=== PATIENT | female | born 1985 | race Hispanic/Latino ===

== ENCOUNTER 2018-06-28 02:06 | Emergency (ER) | payer SELFPAY ==
[2018-06-28] MEDS ORDERED: TYLENOL PO ONE (03:24)
[2018-06-28 03:53] LABS: Basophils % (Auto) 0.4 % (0.0-1.8); Eosinophils # (Auto) 0.1 K/mm3 (0.0-0.4); Eosinophils % (Auto) 1.1 % (0.0-4.3); Hematocrit 40.1 % (30.3-42.9); Lymphocytes # (Auto) 1.8 K/mm3 (1.2-5.4); Lymphocytes % (Auto) 16.8 % (13.4-35.0); Mean Corpuscular HGB Conc 35 % (30-34); Mean Corpuscular Hemoglobin 32 pg (28-32); Mean Corpuscular Volume 91 fl (79-97); Monocytes # (Auto) 0.6 K/mm3 (0.0-0.8); Monocytes % (Auto) 5.4 % (0.0-7.3); Platelet Count 185 K/mm3 (140-440); Red Blood Count 4.41 M/mm3 (3.65-5.03); Red Cell Distribution Width 13.2 % (13.2-15.2)
[2018-06-28 04:11] LABS: Alanine Aminotransferase 13 units/L (7-56); Albumin 3.9 g/dL (3.9-5); BUN/Creatinine Ratio 13; Blood Urea Nitrogen 9 mg/dL (7-17); Calcium 8.7 mg/dL (8.4-10.2); Hemolysis Index 9
[2018-06-28 06:05] LABS: Bacteria,Urine 3+ /HPF (Negative); Bilirubin,Urine NEG (Negative); Blood,Urine LG (Negative); Color,Urine Yellow (Yellow); Urobilinogen,Urine < 2.0 mg/dL (<2.0)
[2018-06-28 06:06] LABS: Mucus,Urine 1+ /HPF; WBC,Urine > 182.0 /HPF (0.0-6.0)
[2018-06-28] MEDS ORDERED: MOTRIN PO ONE (10:02)
--- NOTE | 2018-06-28 11:23 | Emergency Department Report ---
ED Abdominal Pain HPI - General Chief Complaint: Abdominal Pain Stated Complaint: KIDNEY PAIN Time Seen by Provider: 06/28/18 11:20 Source: patient, family Mode of arrival: Ambulatory Limitations: No Limitations - History of Present Illness Initial Comments: This is 32-year-old female here with flank pain bilaterally worse than left. She is having nausea vomiting. Pain is 10 out of 10 to flank. Denies any fever or chills. She says she has a history of kidney stones and she does not have a urologist she just moved from [place]. She is also reporting urinary burning. Pain is sharp and cramping. Intermittent. No alleviating or exacerbating factors. MD Complaint: flank pain Onset/Timin -: days(s) Location: L flank, R flank Radiation: none Migration to: no migration Severity scale (0 -10): 10 Quality: cramping, aching, sharp Consistency: constant Improves With: nothing Worsens With: nothing Context: other (history of kidney stones) Associated Symptoms: nausea, vomiting, dysuria. denies: diarrhea, fever, chills , constipation, hematemesis, hematochezia, melena, hematuria, anorexia, syncope Treatments Prior to Arrival: other ([id number] pain medication) - Related Data LMP (females 10-50): unknown (on control) Previous Rx's Medication Instructions Recorded Last Taken Type Acetaminophen/Codeine [Tylenol 1 tab PO Q6H PRN #12 tab 06/28/18 Unknown Rx /Codeine # 3 tab] Ciprofloxacin HCl [Ciprofloxacin 500 mg PO Q12HR 10 Days #20 tab 06/28/18 Unknown Rx TAB] Naproxen 500 mg PO Q12H PRN #12 tablet 06/28/18 Unknown Rx Ondansetron [Zofran TAB] 4 mg PO Q8HR PRN #12 tablet 06/28/18 Unknown Rx Allergies Allergy/AdvReac Type Severity Reaction Status Date / Time ketorolac [From Toradol] Allergy Swelling Verified 06/28/18 03:16 Sulfa (Sulfonamide Allergy Hives Verified 06/28/18 03:16 Antibiotics) ED Review of Systems ROS: Stated complaint: KIDNEY PAIN Other details as noted in HPI Constitutional: denies: chills, fever Eyes: denies: eye pain, eye discharge ENT: denies: ear pain, throat pain, congestion Respiratory: denies: cough, shortness of breath, SOB with exertion, SOB at rest , stridor, wheezing Cardiovascular: denies: chest pain, palpitations, dyspnea on exertion, edema, syncope Gastrointestinal: abdominal pain, other (bilateral flank pain). denies: nausea , diarrhea, constipation, hematemesis, hematochezia Genitourinary: dysuria. denies: urgency, frequency, hematuria, discharge, dyspareunia Musculoskeletal: denies: back pain, joint swelling, arthralgia Skin: denies: rash, lesions Neurological: denies: headache, weakness ED Past Medical Hx - Past Medical History Previous Medical History?: Yes Additional medical history: blood clotting Disorder - Surgical History Past Surgical History?: Yes Additional Surgical History: IVC filter c sect, tonsilectomy - Family History Family history: hypertension - Social History Smoking Status: Current Every Day Smoker Substance Use Type: Marijuana - Medications Home Medications: Home Medications Medication Instructions Recorded Confirmed Last Taken Type Acetaminophen/Codeine [Tylenol 1 tab PO Q6H PRN #12 tab 06/28/18 Unknown Rx /Codeine # 3 tab] Ciprofloxacin HCl [Ciprofloxacin 500 mg PO Q12HR 10 Days #20 tab 06/28/18 Unknown Rx TAB] Naproxen 500 mg PO Q12H PRN #12 tablet 06/28/18 Unknown Rx Ondansetron [Zofran TAB] 4 mg PO Q8HR PRN #12 tablet 06/28/18 Unknown Rx ED Physical Exam - General Limitations: No Limitations General appearance: alert, in no apparent distress - Head Head exam: Present: atraumatic, normocephalic, normal inspection - Eye Eye exam: Present: normal appearance, PERRL, EOMI Pupils: Present: normal accommodation - ENT ENT exam: Present: normal exam, normal orophraynx, mucous membranes moist, TM's normal bilaterally, normal external ear exam - Neck Neck exam: Present: normal inspection, full ROM. Absent: tenderness, lymphadenopathy - Respiratory Respiratory exam: Present: normal lung sounds bilaterally. Absent: respiratory distress, chest wall tenderness, accessory muscle use - Cardiovascular Cardiovascular Exam: Present: regular rate, normal rhythm, normal heart sounds. Absent: systolic murmur, diastolic murmur - GI/Abdominal GI/Abdominal exam: Present: soft, normal bowel sounds. Absent: distended, tenderness, guarding, rebound, rigid, organomegaly, mass - Extremities Exam Extremities exam: Present: normal inspection, full ROM, normal capillary refill , other (No cce. + 2 pulses in all extremities, no neurovascular compromise). Absent: tenderness, pedal edema, joint swelling, calf tenderness - Back Exam Back exam: Present: normal inspection, full ROM, CVA tenderness (R), CVA tenderness (L) (pain is greater in the left), other (patient ablates about any difficulties). Absent: tenderness, muscle spasm, paraspinal tenderness, vertebral tenderness, rash noted - Neurological Exam Neurological exam: Present: alert, oriented X3, normal gait, reflexes normal. Absent: motor sensory deficit - Psychiatric Psychiatric exam: Present: normal affect, normal mood - Skin Skin exam: Present: warm, dry, intact, normal color. Absent: rash ED Course Vital Signs 06/28/18 06/28/18 06/28/18 03:17 08:45 11:58 Temperature 98.3 F 98.1 F Pulse Rate 74 63 Respiratory 20 18 18 Rate Blood Pressure 131/94 123/80 O2 Sat by Pulse 99 100 Oximetry ED Medical Decision Making - Lab Data Result diagrams: 06/28/18 03:30 06/28/18 03:30 3 mm right renal stone, nonobstructing. Mild prominence of the left renal pelvis. No obstructing lesion is identified. This could represent an extrarenal pelvis or possibly a stricture at the left UPJ. 2 cm left ovarian cyst. - EKG Data -: EKG Interpreted by Ms - Radiology Data Radiology results: report reviewed CT scan of the abdomen and pelvis without contrast dictated per radiologist and reviewed by myself. Please see report below Patient: PHILLIP BOJORQUEZ MR#: [id number] : 1985 Acct:[id number] Age/Sex: 32 / F ADM Date: 06/28/18 Loc: ED Attending Dr: Ordering Physician: LYNNETTE DURAN Date of Service: 06/28/18 Procedure(s): CT abdomen pelvis wo con Accession Number(s): [id number] cc: LYNNETTE DURAN CT ABDOMEN PELVIS WITHOUT CONTRAST: HISTORY: Abdominal pain, flank pain, blood in urine, nausea and vomiting. COMPARISON: none. TECHNIQUE: Helical CT in 1.25mm intervals without IV contrast. Sagittal and coronal reconstructions. FINDINGS: Lung bases: Normal. Liver: Normal. Biliary system: Normal. Pancreas: Normal. Spleen: Normal. Kidneys/ureters/bladder: A 3 mm calyceal stone is identified at the inferior pole of the right kidney. No left nephrolithiasis is identified. The left renal pelvis appears prominent with a transition point at the left ureteropelvic junction. This may represent mild narrowing at the left UPJ. The bladder is unremarkable. Adrenal glands: Normal. Aorta: Normal. Intestines: Within normal limits given no oral contrast was administered. Appendix: Normal. Pelvic viscera: A 2 cm left ovarian cyst is identified. The uterus and right ovary are unremarkable. Bilateral Essure devices are identified which appear in adequate position. Ascites: None. Adenopathy: None. Musculoskeletal: Normal. IMPRESSION: 3 mm right renal stone, nonobstructing. Mild prominence of the left renal pelvis. No obstructing lesion is identified. This could represent an extrarenal pelvis or possibly a stricture at the left UPJ. 2 cm left ovarian cyst. Transcribed By: TTR Dictated By: IFTIKHAR HENDERSON JR, MD Electronically Authenticated By: IFTIKHAR HENDERSON JR, MD Signed Date/Time: 06/28/18 125 DD/ 1251 TD/TT: 06/28/18 1254 Critical care attestation.: If time is entered above; I have spent that time in minutes in the direct care of this critically ill patient, excluding procedure time. ED Disposition Clinical Impression: Flank pain, acute, Acute cystitis with hematuria, Right kidney stone, Left ovarian cyst Abdominal pain Qualifiers: Abdominal location: generalized Qualified Code(s): R10.84 - Generalized abdominal pain Nausea and vomiting Qualifiers: Vomiting type: unspecified Vomiting Intractability: non-intractable Qualified Code(s): R11.2 - Nausea with vomiting, unspecified Disposition: TO HOME OR SELFCARE Is pt being admited?: No Does the pt Need Aspirin: No Condition: Good Instructions: Abdominal Pain (ED), Flank Pain (ED), Urinary Tract Infection in Women (ED), Acute Nausea and Vomiting (ED) Additional Instructions: Please follow up with a primary care physician or [facility] in 4 days or return to emergency room if your condition worsens Take medication as prescribed Take naproxen for mild to moderate pain Take Tylenol 3 for severe pain but appears to not drive or operate heavy machinery while taking this medication as causes drowsiness Take ciprofloxacin for urinary tract infection Follow-up with urology for right kidney stone Follow up with [facility]NER at [facility] for left ovarian cyst. Prescriptions: Acetaminophen/Codeine [Tylenol /Codeine # 3 tab] 1 tab PO Q6H PRN #12 tab PRN Reason: severe pain Ciprofloxacin HCl [Ciprofloxacin TAB] 500 mg PO Q12HR 10 Days #20 tab Naproxen 500 mg PO Q12H PRN #12 tablet PRN Reason: mild to moderate pain Ondansetron [Zofran TAB] 4 mg PO Q8HR PRN #12 tablet PRN Reason: Nausea And Vomiting Referrals: PRIMARY CAREMD [Primary Care Provider] - 07/02/18 [facility] [Outside] - 07/02/18 JAGDISH SWANN MD [Staff Physician] - 07/02/18 Forms: Work/School Release Form(ED)
[2018-06-28] MEDS ORDERED: NACL 0.9% 1000 ML 1,000 ML IV ONE (11:35)
[2018-06-28] MEDS ORDERED: MORPHINE IM ONE (11:35)
[2018-06-28] MEDS ORDERED: ROCEPHIN 250 MG in NACL 0.9% 50 ML IV ONE (11:35)
[2018-06-28] MEDS ORDERED: ZOFRAN IV ONE (11:35)
[2018-06-28] MEDS ORDERED: NORCO 5/325 PO ONE (12:42)
--- NOTE | 2018-06-28 13:00 | Cat Scan Report ---
CT ABDOMEN PELVIS WITHOUT CONTRAST: HISTORY: Abdominal pain, flank pain, blood in urine, nausea and vomiting. COMPARISON: none. TECHNIQUE: Helical CT in 1.25mm intervals without IV contrast. Sagittal and coronal reconstructions. FINDINGS: Lung bases: Normal. Liver: Normal. Biliary system: Normal. Pancreas: Normal. Spleen: Normal. Kidneys/ureters/bladder: A 3 mm calyceal stone is identified at the inferior pole of the right kidney. No left nephrolithiasis is identified. The left renal pelvis appears prominent with a transition point at the left ureteropelvic junction. This may represent mild narrowing at the left UPJ. The bladder is unremarkable. Adrenal glands: Normal. Aorta: Normal. Intestines: Within normal limits given no oral contrast was administered. Appendix: Normal. Pelvic viscera: A 2 cm left ovarian cyst is identified. The uterus and right ovary are unremarkable. Bilateral Essure devices are identified which appear in adequate position. Ascites: None. Adenopathy: None. Musculoskeletal: Normal. IMPRESSION: 3 mm right renal stone, nonobstructing. Mild prominence of the left renal pelvis. No obstructing lesion is identified. This could represent an extrarenal pelvis or possibly a stricture at the left UPJ. 2 cm left ovarian cyst.
[2018-06-28 16:35] VITALS: BP 128/87
== END 2018-06-28 16:34 | disposition home or self-care (01) ==
LOC: ED 02:06
DX: N30.01 Acute cystitis with hematuria (principal); N20.0 Calculus of kidney; N83.202 Unspecified ovarian cyst, left side; F17.200 Nicotine dependence, unspecified, uncomplicated; F12.10 Cannabis abuse, uncomplicated; Z90.89 Acquired absence of other organs; Z88.6 Allergy status to analgesic agent; Z88.2 Allergy status to sulfonamides
CPT/HCPCS: 36415; 74176; 80053; 81001; 84703; 85025; 87076; 87086; 87186; 96361; 96365; 96372; 96375; 99284; J0696; J2270; J2405; J7030

== ENCOUNTER 2019-01-17 01:31 | Emergency (ER) | payer OTHER ==
[2019-01-17 02:26] LABS: Basophils # (Auto) 0.1 K/mm3 (0.0-0.1); Basophils % (Auto) 0.5 % (0.0-1.8); Eosinophils % (Auto) 0.3 % (0.0-4.3); Hematocrit 42.7 % (30.3-42.9); Hemoglobin 15.1 gm/dl (10.1-14.3); Lymphocytes # (Auto) 1.6 K/mm3 (1.2-5.4); Lymphocytes % (Auto) 10.9 % (13.4-35.0); Mean Corpuscular HGB Conc 35 % (30-34); Mean Corpuscular Volume 91 fl (79-97); Monocytes # (Auto) 0.6 K/mm3 (0.0-0.8); Monocytes % (Auto) 4.4 % (0.0-7.3); Platelet Count 216 K/mm3 (140-440); Red Blood Count 4.68 M/mm3 (3.65-5.03); Red Cell Distribution Width 13.3 % (13.2-15.2)
[2019-01-17 02:47] LABS: BUN/Creatinine Ratio 16; Blood Urea Nitrogen 11 mg/dL (7-17); Hemolysis Index 10
[2019-01-17 02:55] VITALS: BP 135/80
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
[2019-01-17] MEDS ORDERED: ZOFRAN ODT PO ONE (03:52)
[2019-01-17] MEDS ORDERED: ULTRAM PO ONE (03:52)
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
== END 2019-01-17 05:10 | disposition home or self-care (01) ==
LOC: ED 01:31
DX: S02.82XA Fracture of other specified skull and facial bones, left side, initial encounter for closed fracture (principal); F17.200 Nicotine dependence, unspecified, uncomplicated; Z90.89 Acquired absence of other organs; Z79.899 Other long term (current) drug therapy; Z88.6 Allergy status to analgesic agent; Z88.2 Allergy status to sulfonamides; Y04.2XXA Assault by strike against or bumped into by another person, initial encounter; Y93.89 Activity, other specified; Y92.512 Supermarket, store or market as the place of occurrence of the external cause; Y99.8 Other external cause status
CPT/HCPCS: 36415; 70450; 70486; 80048; 85025; Q0162